=== PATIENT | male | born 1980 | race Caucasian/White ===

== ENCOUNTER 2016-05-09 21:00 | Inpatient (IN) | payer OTHER ==
--- NOTE | ~2016-05-09 | DS ---
Discharge Summary [facility] [address] [facility] [place]. [address] NAME: ERIN BLACK : 80 STATUS : DIS IN PAT#: [id number] AGE: 36 ADM/REG DATE : 05/10/16 MR#: [id number] REPORT SERV DATE: 05/20/16 DICTATED BY: TANNER AVENDANO DATE: 05/19/16 REPORT STATUS : Draft TRANSCRIBED BY: MASHA DATE: 05/19/16 Data Collection from hospitalization DISCHARGE DIAGNOSES: 1. Sigmoid diverticulitis with perforation - recurrent. 2. Obesity. 3. Tobacco use. CONSULTATIONS: None. PROCEDURES PERFORMED: CT scan of the abdomen and pelvis without contrast on 05/10/2016. MEDICATIONS: Levaquin 750 mg every morning, Flagyl 500 mg every eight hours, and Prilosec 40 mg daily. CONDITION AT DISCHARGE: Stable. DISPOSITION: The patient was discharged home on a full liquid diet for 48 hours, then high- fiber diet as instructed with activities as instructed. He would follow up with me on 06/09/2016. HOSPITAL COURSE: This is a 36-year-old man who presented with a history of left lower quadrant pain. It was acute onset of one day duration prior to his evaluation. He was noted to have a normal white blood cell count with mild pain in the left lower quadrant. A CT scan was performed, which revealed inflammation of the sigmoid colon with a small air bubble and inflammation consistent with perforation and early abscess formation. There was no evidence of free intraperitoneal air or adenopathy. He had no acute abdominal pain at the time of his exam on the day of admission. He had a colonoscopy in December 2015 with a similar episode. He said he had been compliant with his high-fiber diet and had a colonoscopy after his admission in the fall, which revealed no evidence of neoplasm. He was admitted to the hospital at this time for further evaluation and treatment. Upon admission, his white blood cell count was normal. Creatinine level was 1.18. He was felt to have recurrent or incomplete healing of diverticulitis from the December 2015 study with sigmoid diverticulitis and tiny bubble of free air followed by some inflammatory changes consistent with early pericolonic abscess. He was placed on bowel rest and IV antibiotics. Conservative therapy would be continued. We would reserve any surgical intervention for failure of medical therapy with worsening infection, perforation, hemorrhage, or stricture. The following day, he had no new complaints. He was afebrile. IV antibiotics were continued. His abdomen was soft and nondistended. He had minimal left lower quadrant tenderness. On 05/12/2016, he was tolerating some oral intake. He had no complaints of abdominal pain. He was afebrile. He was changed to oral antibiotics. We discussed elective sigmoid colectomy with the patient's second episode of perforation at his young age. Discharge planning was performed. On 05/13/2016, he had no new complaints. He was tolerating oral intake. He had no complaints of abdominal pain. He was felt to have resolving perforated diverticulitis. Discharge instructions were given. Due to his improved and stable condition, he was discharged home with the above-stated instructions. Discharge Summary [address] [place]. [address] NAME: ERIN BLACK : 80 STATUS : DIS IN PAT#: [id number] AGE: 36 ADM/REG DATE : 05/10/16 MR#: [id number] REPORT SERV DATE: 05/20/16 DICTATED BY: TANNER AVENDANO DATE: 05/19/16 REPORT STATUS : Draft TRANSCRIBED BY: MASHA DATE: 05/19/16 Information collected by: Shelby Li I submit the above information as my discharge summary. CELINA/MASHA Tanner Avendano M.D. / [id number] CC: Tanner Avendano M.D.
--- NOTE | ~2016-05-09 | HP ---
History And Physical [facility] [id number] [place]. [address] NAME: ERIN BLACK : 80 STATUS : ADM IN [facility]#: [id number] AGE: 36 ADM/REG DATE : 05/10/16 MR#: [id number] REPORT SERV DATE: 05/10/16 DICTATED BY: TANNER AVENDANO DATE: 05/10/16 REPORT STATUS : Draft TRANSCRIBED BY: MODL DATE: 05/10/16 DATE OF ADMISSION: 05/10/2016 HISTORY OF PRESENT ILLNESS: This 36-year-old gentleman presents with a history of a left lower quadrant pain. It was an acute onset of pain of one day duration prior to his evaluation. He was noted to have a normal white blood cell count with mild pain in the left lower quadrant. He had a CT scan that revealed inflammation of the sigmoid colon with a small air bubble and inflammation consistent with perforation and early abscess formation. There was no evidence of free intraperitoneal air or adenopathy. He has no acute abdominal pain on exam today. He had a colonoscopy after his admission on 12/10/2015 with a similar episode. He has been compliant with his high-fiber diet and had a colonoscopy after his admission in the late fall that revealed no evidence of any neoplasm. PAST MEDICAL HISTORY: Obesity. PAST SURGICAL HISTORY: None. ALLERGIES: NO KNOWN DRUG ALLERGIES. MEDICATIONS: None. 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 He denies illicit drugs or alcohol. He does smoke cigarettes occasionally. FAMILY HISTORY: Positive for diabetes mellitus. REVIEW OF SYSTEMS: No headache, blurred vision, dizziness, chest pain, shortness of breath, cough, dyspnea on exertion, syncope, palpitations, jaundice, itching, bright red blood per rectum, melena, or change in the caliber of his stools. PHYSICAL EXAMINATION: GENERAL: Obese male in no apparent distress. HEENT: Normocephalic, atraumatic. Sclerae anicteric. NECK: Supple. No adenopathy. CARDIOVASCULAR: Regular rate and rhythm without murmur. RESPIRATORY: Clear to auscultation. ABDOMEN: Soft, obese, and nondistended. The patient has minimal left lower quadrant tenderness with deep palpation. There is no rebound, guarding, or mass. BACK: No CVA tenderness. EXTREMITIES: No clubbing, cyanosis, edema, or jaundice. LABORATORY DATA: Please see hospital chart. His white blood cell count is normal and creatinine is 1.18. IMAGING: Recurrent or incomplete healing of diverticulitis from 12/2015 study with sigmoid History And Physical [address] [place]. [address] NAME: ERIN BLACK : 80 STATUS : ADM IN [facility]#: [id number] AGE: 36 ADM/REG DATE : 05/10/16 MR#: [id number] REPORT SERV DATE: 05/10/16 DICTATED BY: TANNER AVENDANO DATE: 05/10/16 REPORT STATUS : Draft TRANSCRIBED BY: MASHA DATE: 05/10/16 diverticulitis with tiny bubble of free air followed by some inflammatory changes consistent with early pericolonic abscess. ASSESSMENT: 1. Perforated sigmoid diverticulitis with early abscess formation. 2. Obesity. PLAN: The patient will have bowel rest, IV antibiotics, serial exams and labs. We will continue conservative therapy and reserve any surgical intervention for failure of medical therapy with worsening infection, perforation, hemorrhage or stricture. RAQUEL/MASHA Tanner Avendano M.D. / [id number] CC: Tanner Avendano M.D.
[~2016-05-09 21:00] MED LIST: ADVIL PO; CIP5 PO; FLAG500TAB PO; LEVAQUIN750 MG PO; LINZESS 290 M290 MCG PO; PRILOSEC40 MG PO
[2016-05-09 21:54] LABS: BASOPHILS 0.4 %; BASOPHILS ABSOLUTE 0.04 10/3/uL (0.0-0.16); EOSINOPHILS ABSOLUTE 0.09 10/3/uL (0.0-0.53); ER CBC TAT 0 Hrs 07 Mins; IMMATURE GRANULOCYTES 0.1 %; IMMATURE GRANULOCYTES ABSOLUTE 0.01 10/3/uL (0.0-0.11); LYMPHOCYTES 20.7 %; LYMPHOCYTES ABSOLUTE 1.88 10/3/uL (0.67-4.30); MEAN CORPUS HGB CONC 33.7 g/dL (32.0-36.0); MEAN CORPUSCULAR HEMOGLOB 28.7 pg (26.0-34.0); MEAN CORPUSCULAR VOLUME 85.1 fL (80-100); MEAN PLATELET VOLUME 10.2 fL (9.2-13.0); MONOCYTES 5.9 %; MONOCYTES ABSOLUTE 0.54 10/3/uL (0.21-1.20); NEUTROPHILS 71.9 %; NEUTROPHILS ABSOLUTE 6.54 10/3/uL (2.02-8.40); PLATELET COUNT 215 10/3/uL (150-400); RBC DISTRIBUTION WIDTH 14.1 % (12.0-16.0); RED CELL COUNT 5.23 10/6/uL (4.7-6.1); WHITE BLOOD CELLS 9.1 10/3/uL (4.5-10.5)
[2016-05-09 21:55] LABS: HEMATOCRIT 44.5 % (40.0-51.0); MANUAL DIFF NO %
[2016-05-09 21:56] LABS: ASCORBIC ACID (UR NOT ORDER) NEG (NEG); BILIRUBIN, URINE NEGATIVE (NEG); ER URINALYSIS TAT 0 Hrs 09 Mins; KETONE, URINE NEGATIVE (NEG); LEUKOCYTE ESTERASE(NOT OR NEG (NEG); NITRITE (URINE) NEG (NEG); WBC (NOT ORDERED) (RFLEX) < 1 (0-5)
[2016-05-09 22:10] LABS: A/G RATIO 0.9 (0.7-1.9); ALBUMIN 3.7 G/DL (3.5-5.0); BUN (BLOOD UREA NITROGEN) 18 MG/DL (6-23); CALCIUM, SERUM 8.9 MG/DL (8.5-10.4); CHLORIDE, SERUM 102 MMOL/L (96-112); CO2 (CARBON DIOXIDE) 31 MMOL/L (24-34); CREATININE 1.18 MG/DL (0.70-1.30); GFR AFRICAN AMERICAN 91 ML/MIN (>=60); GFR NON AFRICAN AMERICAN 79 ML/MIN (>=60); GLOBULIN 3.9 G/DL (2.5-4.1); GLUCOSE, SERUM 117 MG/DL (60-99); POTASSIUM, SERUM 3.8 MMOL/L (3.5-5.3); SGOT(AST) 12 U/L (5-40); SGPT(ALT) 30 U/L (5-65); SODIUM, SERUM 140 MMOL/L (135-148); TOTAL BILIRUBIN 0.6 MG/DL (0-1.2); TOTAL PROTEIN 7.6 G/DL (6.0-8.5)
[2016-05-09 22:11] LABS: ALKALINE PHOSPHATASE 108 U/L (45-117)
[2016-05-10] MEDS ORDERED: PRILOSEC40 MG PO (02:20)
[2016-05-11 07:46] LABS: BUN (BLOOD UREA NITROGEN) 13 MG/DL (6-23); CALCIUM, SERUM 8.8 MG/DL (8.5-10.4); CHLORIDE, SERUM 108 MMOL/L (96-112); CO2 (CARBON DIOXIDE) 25 MMOL/L (24-34); CREATININE 0.92 MG/DL (0.70-1.30); GFR AFRICAN AMERICAN 124 ML/MIN (>=60); GFR NON AFRICAN AMERICAN 107 ML/MIN (>=60); GLUCOSE, SERUM 89 MG/DL (60-99); POTASSIUM, SERUM 4.2 MMOL/L (3.5-5.3); SODIUM, SERUM 143 MMOL/L (135-148)
[2016-05-12 07:01] LABS: BUN (BLOOD UREA NITROGEN) 12 MG/DL (6-23); CALCIUM, SERUM 8.6 MG/DL (8.5-10.4); CHLORIDE, SERUM 106 MMOL/L (96-112); CO2 (CARBON DIOXIDE) 26 MMOL/L (24-34); CREATININE 1.05 MG/DL (0.70-1.30); GFR AFRICAN AMERICAN 105 ML/MIN (>=60); GFR NON AFRICAN AMERICAN 91 ML/MIN (>=60); GLUCOSE, SERUM 85 MG/DL (60-99); POTASSIUM, SERUM 3.8 MMOL/L (3.5-5.3); SODIUM, SERUM 144 MMOL/L (135-148)
[2016-05-13] MEDS ORDERED: LEVAQUIN750 MG PO (09:07)
[2016-05-13] MEDS ORDERED: FLAG500TAB PO (09:08)
== END 2016-05-13 11:18 | disposition home or self-care (01) | DRG 392 ==
LOC: ER 21:00 → 4SO 05-10 02:58
PROVIDERS: Specialist; Surgery
DX: K57.20 Diverticulitis of large intestine with perforation and abscess without bleeding (principal); E66.9 Obesity, unspecified; F17.210 Nicotine dependence, cigarettes, uncomplicated; Z68.37 Body mass index [BMI] 37.0-37.9, adult
CPT/HCPCS: 74176; 80048; 80053; 81001; 83690; 85025; 99285; A9270-GY; J1956